=== PATIENT | female | born 1945 | race Caucasian/White ===

== ENCOUNTER → 2018-07-17 | Outpatient (CLI) | payer OTHER, MEDICARE ==
[~2018-07-17] VITALS: Ht 165.1 cm; Wt 74.8 kg
[~2018-07-17] MED LIST: ACETAMINOPHEN325 M1 PO; CYCLOBENZAPRINE10 MG PO; MEDROL DOSPAK21 TA1 PO; NORCO 5-325 TA1 EACH PO; TRAMADOL 50 MG50 MG PO
--- NOTE | ~2018-07-17 | HPC ---
[facility] [address] [place] [address] PAIN MANAGEMENT CONSULTATION Name: MARITZA GUERRERO Room #: REG JACKIE Vamsi.#: [id number] Admission: 07/17/18 ������������������ Attend Phys: Cristhian Alcantar MD Discharge: ������������������ Date of : 49 Report #: [id number] THIS REPORT FOR: //name// CC: Hi Alcantar DATE OF SERVICE: 07/17/2018 CHIEF COMPLAINT: Sudden onset of neck pain on the left with radiation along the medial border of the scapula and into the upper arm. HISTORY OF PRESENT ILLNESS: The patient is a taryn 72-year-old female who is here today in the pain clinic with fairly acute onset pain. She has been doing daily spinning classes. She has had some gradual increase in pain, but on 07/06/2018, she had a sudden intense pain around her left shoulder that radiated down along the scapula into the neck and into the upper left arm. Pain was so severe that she went to the Emergency Room fearing even that she might be having a cardiac event. All of that was ruled out during the visit, but the pain persisted. She was given an opioid in the Emergency Room, I believe and sent home with muscle relaxant and has seen some improvement. She is now about a week and a half out and her pain score is still an 8/10. She describes it as constant continuous crushing sensation. She has no pain on the right. CURRENT MEDICATIONS: Medrol Dosepak ordered by Dr. Miller. ALLERGIES: None. PAST MEDICAL HISTORY: Significant for previous lumbar radiculopathy treated successfully with a single epidural injection several years ago. REVIEW OF SYSTEMS: Positive for decreased appetite, but otherwise she answers no for every single question on the form. SOCIAL HISTORY: She is a realtor, . She denies use of tobacco and enjoys alcohol in a social setting. PHYSICAL EXAMINATION: GENERAL: Attractive 72-year-old female, pleasant, alert and oriented. No signs of depression or anxiety. VITAL SIGNS: Blood pressure is 137/69, heart rate 74, respirations 16. She is 5 feet 5 inches, 165 pounds. CHEST: Clear. CARDIAC: Rhythm is regular. [facility] [address] [place] [address] PAIN MANAGEMENT CONSULTATION Name: MARITZA GUERRERO Room #: [facility].#: [id number] Admission: 07/17/18 ������������������ Attend Phys: Cristhian Alcantar MD Discharge: ������������������ Date of : 49 Report #: [id number] EXTREMITIES: Examination of the neck reveals some pain with neck flexion. Extension is performed without difficulty or radiation. Rotational movements, lateral tilt also performed without discomfort. She has mild tenderness along the left neck and then also along the trapezius and the suprascapular region. There is some pain along the medial border of the scapula as well. She has good strength in the upper extremities with no weakness noted or asymmetry. Deep tendon reflexes are brisk, 2+ biceps, triceps, brachioradialis. Sensation is intact. It should be noted that she is hyperreflexic in the lower extremities with 3+-4+ knee jerk reflex and 2-3+ ankle jerk reflex with no asymmetry. X-rays available: None. IMPRESSION: Cervicalgia acute in onset. Mild C5 radicular symptoms. I am concerned a little bit by her hyperreflexia. She does not have classic symptoms of radiculopathy at this time, but with the hyperreflexia and ongoing neck pain, I have suggested that we perform an MRI at this time. I will be looking for cord compression. She may be a candidate for cervical epidural injection. Much of her pain, I think is reactive muscle spasm. I have given her a muscle relaxant, cyclobenzaprine for bedtime and tramadol 50 mg for current daily pain. Side effects of both medications reviewed and discussed. Followup visit planned in 10 days to 2 weeks. ��������������������������������������������� ���������������������������������������� By: ��������������������������������������������� [id number] [id number] Cristhian Alcantar MD /nt
[2018-07-17 10:21] VITALS: BP 137/69
--- NOTE | 2018-07-17 10:23 | NUR ---
Pain Clinic Assessment: 1. History of Osteoarthritis: Not Applicable History of Rheumatoid Arthritis: Not Applicable 2. Height: 5 ft. 5 in. 165.1 cm. Weight: 165.0 lb. oz. 74.844 kg. Patient's BMI: 27.5 3. Vital Signs: BP: 137/69 Pulse: 74 Resp: 16 Temp: 02 Sat: 98 ECG Mon: 4. Pain Intensity: 8 5. Fall Risk: Dizziness: N Needs help standing or walking: N Fallen in the last 3 months: N Fall risk comments: 6. Patient on Blood Thinner: None 7. History of Hypertension: N 8. Opioid Therapy greater than 6 weeks: N Opiate Contract Signed: 9. Risk Assessment Tool Provided: 10. Functional Assessment Tool: 11. Recreational Drug Use: Never Drug Type: Tobacco Use: Never Smoker Tobacco Type: Amount or Packs/day: How Many Years: Alcohol Use: Yes Frequency: Weekly Quant: 14
== END ==
LOC: PAIN 06:55
DX: M54.2 Cervicalgia (principal); Z79.899 Other long term (current) drug therapy; Z79.891 Long term (current) use of opiate analgesic

== ENCOUNTER → 2018-07-28 | Outpatient (CLI) | payer OTHER, MEDICARE ==
[~2018-07-28] VITALS: Ht 165.1 cm; Wt 74.8 kg
--- NOTE | ~2018-07-28 | HPC ---
[facility] [place] [address] PAIN MANAGEMENT CONSULTATION Name: MARITZA GUERRERO Room #: REG JACKIE Vamsi.#: [id number] Admission: 07/28/18 ������������������ Attend Phys: Cristhian Alcantar MD Discharge: ������������������ Date of : 49 Report #: [id number] THIS REPORT FOR: //name// CC: JACEY Alcantar DATE OF SERVICE: 07/28/2018 Followup visit for cervicalgia with radiculopathy. The patient returns to pain clinic today for cervical epidural injection. I reviewed her MRI with her. The MRI shows that she has a diffuse disk osteophyte complex with an osteophyte and effacement of the thecal sac with facet arthropathy. There is moderate right foraminal stenosis as well as left foraminal stenosis. At C6-C7, also noted is osteophyte, facet arthropathy. There is right and left foraminal stenosis. This is consistent with her symptoms of sudden onset of neck pain on the left with radiation into the arm consistent with radiculopathy. We have elected today to proceed with a cervical epidural injection. The procedure was explained, risks and benefits, she would like to proceed. PROCEDURE: Cervical epidural injection. She was taken to the fluoroscopic suite. She was placed prone, skin prepped with ChloraPrep. Skin anesthetized over the C6-C7 interspace. A 20-gauge Tuohy epidural needle advanced into the epidural space on the first attempt using loss of resistance technique. Needle was slightly to the left of midline. A 0.25 mL of Omnipaque was injected. Good spread of dye observed along the epidural space and in the lateral recess. It was followed by 3 mL of 0.5% lidocaine mixed with 80 mg of triamcinolone. She tolerated the procedure well, was observed for 45 minutes and discharged. Followup visit scheduled in the pain clinic on an as needed basis. ��������������������������������������������� ���������������������������������������� By: ��������������������������������������������� [id number] [id number] Cristhian Alcantar MD /nt
[2018-07-28 11:18] VITALS: BP 126/77
--- NOTE | 2018-07-28 11:34 | NUR ---
Pain Clinic Assessment: 1. History of Osteoarthritis: Not Applicable History of Rheumatoid Arthritis: Not Applicable 2. Height: 5 ft. 5 in. 165.1 cm. Weight: 164.8 lb. oz. 74.753 kg. Patient's BMI: 27.4 3. Vital Signs: BP: 126/77 Pulse: 105 Resp: 16 Temp: 02 Sat: 97 ECG Mon: 4. Pain Intensity: 8 5. Fall Risk: Dizziness: N Needs help standing or walking: N Fallen in the last 3 months: N Fall risk comments: 6. Patient on Blood Thinner: None 7. History of Hypertension: N 8. Opioid Therapy greater than 6 weeks: N Opiate Contract Signed: 9. Risk Assessment Tool Provided: 10. Functional Assessment Tool: 11. Recreational Drug Use: Never Drug Type: Tobacco Use: Never Smoker Tobacco Type: Amount or Packs/day: How Many Years: Alcohol Use: Yes Frequency: Quant:
== END | disposition home or self-care (01) ==
LOC: PAIN 06:55
DX: M47.22 Other spondylosis with radiculopathy, cervical region (principal); M48.02 Spinal stenosis, cervical region; G89.29 Other chronic pain; Z88.8 Allergy status to other drugs, medicaments and biological substances; Z79.899 Other long term (current) drug therapy

== ENCOUNTER → 2018-08-25 | Outpatient (CLI) | payer OTHER, MEDICARE ==
[~2018-08-25] VITALS: Ht 160 cm; Wt 72.8 kg
[~2018-08-25] MED LIST changes: +VALACYCLOVIR1000 MG PO
--- NOTE | ~2018-08-25 | HPC ---
[facility] [place] [address] PAIN MANAGEMENT CONSULTATION Name: MARITZA GUERRERO Room #: REG JACKIE Pablo#: [id number] Admission: 08/25/18 ������������������ Attend Phys: Cristhian Alcantar MD Discharge: ������������������ Date of : 49 Report #: [id number] THIS REPORT FOR: //name// CC: JACEY Alcantar DATE OF SERVICE: 08/25/2018 Followup visit for cervical radiculopathy. My friend, the patient returns to pain clinic today and I learned from the tragedy that her son has recently committed suicide. She and I discussed this tragic event for a good portion of our visit today. Offered my condolences and those of our common friends. She has asked me to make some phone calls to some common friends to let them know since the notice was not placed within the obituary pages. Her ongoing physical pain is consistent with a cervical radiculopathy and was treated effectively with her initial injection on 07/28/2018. She has a diffuse disk osteophyte complex pressing upon the neural foraminal levels at C5-C6 and C6-C7 where there is bilateral stenosis. Majority of her pain was eliminated with the first injection and has gradually come back, but she still is at least about 60% better. Medications remain unchanged. ALLERGIES: None. MRI is reviewed once again showing the C5-C6 and C6-C7 changes. I have also reviewed my x-ray from cervical epidural with placement of the needle to assist in subsequent injection. PHYSICAL EXAMINATION: GENERAL: She is holding up remarkably well. Sad and emotional, but quite stoic and almost philosophical at this stage of grief. VITAL SIGNS: Her blood pressure is 157/75, heart rate is 106. MUSCULOSKELETAL: Cervical range of motion is limited in flexion and extension. She has no pain with rotational movements. There is tenderness along the left neck and trapezius and suprascapular region. Reflexes are normal throughout. Sensation intact. IMPRESSION: 1. Cervicalgia. 2. C5 radicular symptoms on the left. PROCEDURE: Cervical epidural injection under fluoroscopic guidance. [facility] [address] [place] [address] PAIN MANAGEMENT CONSULTATION Name: MARITZA GUERRERO Room #: REG Shell Shah#: [id number] Admission: 08/25/18 ������������������ Attend Phys: Cristhian Alcantar MD Discharge: ������������������ Date of : 49 Report #: [id number] DESCRIPTION OF PROCEDURE: She was taken to fluoroscopic suite, placed prone, skin prepped with ChloraPrep. Skin anesthetized over the C6-C7 interspace. A 20-gauge Tuohy epidural needle advanced first attempt in the epidural space using loss of resistance technique. There was no blood or CSF aspirated. Omnipaque 1 mL was injected. Good spread of dye observed in the epidural space followed by 3 mL of 0.5% lidocaine mixed with 80 mg of triamcinolone. She tolerated the procedure well and was observed for 45 minutes and discharged. Follow up as needed. ��������������������������������������������� ���������������������������������������� By: ��������������������������������������������� 1418 0513 Cristhian Alcantar MD /pepper
[2018-08-25 10:23] VITALS: BP 156/75
--- NOTE | 2018-08-25 10:39 | NUR ---
Pain Clinic Assessment: 1. History of Osteoarthritis: Not Applicable History of Rheumatoid Arthritis: Not Applicable 2. Height: 5 ft. 3 in. 160.0 cm. Weight: 160.4 lb. oz. 72.757 kg. Patient's BMI: 28.4 3. Vital Signs: BP: 156/75 Pulse: 106 Resp: 16 Temp: 02 Sat: 98 ECG Mon: 4. Pain Intensity: 4-5 5. Fall Risk: Dizziness: N Needs help standing or walking: N Fallen in the last 3 months: N Fall risk comments: 6. Patient on Blood Thinner: None 7. History of Hypertension: N 8. Opioid Therapy greater than 6 weeks: N Opiate Contract Signed: 9. Risk Assessment Tool Provided: LOW 10. Functional Assessment Tool: 50/70 11. Recreational Drug Use: Never Drug Type: Tobacco Use: Never Smoker Tobacco Type: Amount or Packs/day: How Many Years: Alcohol Use: Yes Frequency: Daily Quant: 6
== END | disposition home or self-care (01) ==
LOC: PAIN 06:41
DX: M54.12 Radiculopathy, cervical region (principal); M54.2 Cervicalgia; Z88.8 Allergy status to other drugs, medicaments and biological substances; Z79.899 Other long term (current) drug therapy

== ENCOUNTER → 2020-01-14 | Outpatient (CLI) | payer OTHER, MEDICARE ==
[~2020-01-14] VITALS: Ht 160 cm; Wt 73.5 kg
--- NOTE | ~2020-01-14 | HPC ---
[facility] [address] [address] PAIN MANAGEMENT CONSULTATION Name: MARITZA GUERRERO Room #: REG JACKIE ShahRosanaYoel.#: [id number] Admission: 01/14/20 Attend Phys: Cristhian Alcantar MD Discharge: Date of : 49 Report #: [id number] CC: JACEY Alcantar DATE OF SERVICE: 01/14/2020 CHIEF COMPLAINT: Neck pain with radiation into the left arm. HISTORY OF PRESENT ILLNESS: The patient was last seen on 08/25/2018. At that time, I performed a cervical epidural for her with excellent improvement. She has had intermittent cervical radiculopathy related to changes at C5-C6 and C6-C7 causing encroachment upon the neural foramina. She was doing well up until a few weeks ago. She did have a fall, which may have aggravated her injury. She fell backwards down the steps. She lost consciousness briefly and x-rays were performed, but with no significant changes. Her pain in general has worsened over the course of the last 4 weeks. She also has recently been diagnosed with breast cancer from the needle biopsy performed at [facility]. A lumpectomy is scheduled at [facility] with Dr. Puga. Apparently, this can be postponed according to Dr. Puga due to the known slow growth of her tumor type. I have encouraged her to get that done. She is anxious to get some pain relief before she has to undergo any surgery. She follows with Dr. Miller. She has also seen Dr. Martínez Wooten for issues related to her shoulder. Today, her pain report is of pain that radiates through the thumb in the left hand following a C6-C7 distribution. Her pain intensity is 4/10. She denies other osteoarthritis. Her BMI is 28.7. She is on no blood thinners and is not treated for hypertension. She is not taking opioids. Her functional assessment score is 52, suggesting high impact of her pain on day-to-day activities. She has an occasional beer, [employer], but does not drink on a regular basis. She denies use of tobacco. PHYSICAL EXAMINATION: GENERAL: Pleasant female. VITAL SIGNS: Blood pressure 124/72, heart rate 86, respirations 14, O2 sat 99. CHEST: Clear. CARDIAC: Rhythm is regular. MUSCULOSKELETAL: Neck range of motion reproduces pain. She has pain with neck extension radiating through the C6-C7 distribution. There is a brace on her left knee. She has some limited range of motion. Her deep tendon reflexes are 2+ in the lower extremities. IMPRESSION: Cervicalgia with radiculopathy, left C6-C7. RECOMMENDATIONS: Cervical epidural injection under fluoroscopic guidance. Procedure is well known to the patient. We reviewed potential risks and benefits. She is anxious to proceed. PROCEDURE: She was taken to fluoroscopic suite for treatment, placed prone, skin prepped with ChloraPrep. Skin anesthetized over C6-C7. A 20-gauge Tuohy epidural needle advanced on the first attempt into the epidural space using loss of resistance technique. There was no blood or CSF aspirated. A 1 mm of Omnipaque was injected and good spread of dye observed into the epidural space, was followed by 3 mL of 0.5% lidocaine mixed with 80 mg of triamcinolone. She tolerated the procedure well and was observed in recovery room for 45 minutes before discharge. Follow up as needed. By: [id number] Cristhian Alcantar MD /nt
[2020-01-14 10:06] VITALS: BP 124/72
--- NOTE | 2020-01-14 10:10 | NUR ---
Pain Clinic Assessment: 1. History of Osteoarthritis: DENIES History of Rheumatoid Arthritis: DENIES 2. Height: 5 ft. 3 in. 160.0 cm. Weight: 162.0 lb. oz. 73.483 kg. Patient's BMI: 28.7 3. Vital Signs: BP: 124/72 Pulse: 86 Resp: 14 Temp: 02 Sat: 99 ECG Mon: 4. Pain Intensity: 4 5. Fall Risk: Dizziness: N Needs help standing or walking: N Fallen in the last 3 months: N Fall risk comments: 6. Patient on Blood Thinner: None 7. History of Hypertension: N 8. Opioid Therapy greater than 6 weeks: N Opiate Contract Signed: 9. Risk Assessment Tool Provided: LOW 10. Functional Assessment Tool: 50/70 11. Recreational Drug Use: Never Drug Type: Tobacco Use: Never Smoker Tobacco Type: Amount or Packs/day: How Many Years: Alcohol Use: Yes Frequency: Daily Quant: AMSTEL LIGHT
== END ==
LOC: PAIN 06:50
PROVIDERS: ATTEND Anesthesiology Pain Medicine
DX: M54.2 Cervicalgia (principal); M54.16 Radiculopathy, lumbar region; Z79.899 Other long term (current) drug therapy

== ENCOUNTER → 2020-09-08 | Outpatient (CLI) | payer OTHER, MEDICARE ==
[~2020-09-08] VITALS: Ht 160 cm; Wt 75.9 kg
[2020-09-08 13:17] VITALS: BP 117/66
--- NOTE | 2020-09-08 13:31 | NUR ---
Pain Clinic Assessment: 1. History of Osteoarthritis: DENIES History of Rheumatoid Arthritis: DENIES 2. Height: 5 ft. 3 in. 160.0 cm. Weight: 167.4 lb. oz. 75.932 kg. Patient's BMI: 29.7 3. Vital Signs: BP: 117/66 Pulse: 101 Resp: 16 Temp: 02 Sat: 97 ECG Mon: 4. Pain Intensity: 6 5. Fall Risk: Dizziness: N Needs help standing or walking: N Fallen in the last 3 months: N Fall risk comments: 6. Patient on Blood Thinner: None 7. History of Hypertension: N 8. Opioid Therapy greater than 6 weeks: N Opiate Contract Signed: 9. Risk Assessment Tool Provided: LOW 10. Functional Assessment Tool: 50/70 11. Recreational Drug Use: Never Drug Type: Tobacco Use: Never Smoker Tobacco Type: Amount or Packs/day: How Many Years: Alcohol Use: Yes Frequency: Daily Quant: 3
== END | disposition home or self-care (01) ==
LOC: PAIN 10:34
PROVIDERS: ATTEND Anesthesiology Pain Medicine
DX: M54.12 Radiculopathy, cervical region (principal); G89.29 Other chronic pain; Z98.890 Other specified postprocedural states; Z88.8 Allergy status to other drugs, medicaments and biological substances